=== PATIENT | male | born 2000 | race Caucasian/White ===

== ENCOUNTER 2020-02-02 16:46 | Emergency (ER) | payer SELFPAY ==
[2020-02-02] MEDS ORDERED: valACYclovir 1,000 MG Tab PO ONE (17:09)
--- NOTE | 2020-02-02 17:11 | EDM.PDOC ---
ED HPI GENERAL MEDICAL PROBLEM - General Chief Complaint: General Stated Complaint: STI TESTING Time Seen by Provider: 02/02/20 16:58 Source of Information: Reports: Patient History Limitations: Reports: No Limitations - History of Present Illness INITIAL COMMENTS - FREE TEXT/NARRATIVE: The patient presents for STD testing. He was called by a girlfriend that she has herpes and he should get tested. He has some lesions on the shaft of his penis that showed up last week. They are crusted over now. He has no penile discharge. Onset: Gradual Duration: Week(s): (1) Location: Reports: Other (Penis) Quality: Reports: Burning Severity: Mild Improves with: Reports: None Worsens with: Reports: None Associated Symptoms: Reports: No Other Symptoms - Related Data Allergies Allergy/AdvReac Type Severity Reaction Status Date / Time No Known Allergies Allergy Verified 02/02/20 16:56 Home Meds: Home Meds valACYclovir [Valtrex] 1,000 mg PO BID #14 tab 02/02/20 [Rx] Past Medical History - Past Surgical History HEENT Surgical History: Reports: Tonsillectomy Social & Family History - Tobacco Use Tobacco Use Status *Q: Current Every Day Tobacco User Years of Tobacco use: 3 Packs/Tins Daily: 1 - Caffeine Use Caffeine Use: Reports: Coffee, Energy Drinks, Soda - Recreational Drug Use Recreational Drug Use: No ED ROS GENERAL - Review of Systems Review Of Systems: See Below Constitutional: Reports: No Symptoms HEENT: Reports: No Symptoms Respiratory: Reports: No Symptoms Cardiovascular: Reports: No Symptoms Endocrine: Reports: No Symptoms GI/Abdominal: Reports: No Symptoms : Reports: Other (Penile lesions) ED EXAM, GENERAL - Physical Exam Exam: See Below Exam Limited By: No Limitations General Appearance: Alert, No Apparent Distress Ears: Normal External Exam Nose: Normal Inspection Head: Atraumatic, Normocephalic Neck: Normal Inspection Respiratory/Chest: No Respiratory Distress (Male) Exam: Other (about 5 lesions on his penis that are scabbed over. No penile discharge.) Course - Vital Signs Last Recorded V/S: Last Vital Signs Temp 96.8 F L 02/02/20 16:55 Pulse 83 02/02/20 16:55 Resp 20 02/02/20 16:55 BP 153/93 H 02/02/20 16:55 Pulse Ox 100 02/02/20 16:55 - Re-Assessments/Exams Free Text/Narrative Re-Assessment/Exam: 02/02/20 17:10 He has herpes. I will get him a dose of valacyclivor and check him for chlamydia and gonorrhea. I will call him with those results. Departure - Departure Time of Disposition: 17:15 Disposition: Home, Self-Care 01 Condition: Good Clinical Impression: Herpes genitalis in men - Discharge Information *PRESCRIPTION DRUG MONITORING PROGRAM REVIEWED*: Not Applicable *COPY OF PRESCRIPTION DRUG MONITORING REPORT IN PATIENT KASSANDRA: Not Applicable Prescriptions: valACYclovir [Valtrex] 1,000 mg PO BID #14 tab Referrals: PCP,None [Primary Care Provider] - Chelsea Stokes, TERESSA [Nurse Practitioner] - 1 Week Additional Instructions: Take the valacyclivor 2 times per day for a week. Do not have intercourse until the lesions are gone. I will call you with the gonorrhea and chlamydia results. Follow up with Chelsea Stokes in your clinic within a week. Please return if you are worse. Contact partners and have them get tested. Sepsis Event Note (ED) - Evaluation Sepsis Screening Result: No Definite Risk - Focused Exam Vital Signs: Vital Signs Temp Pulse Resp BP Pulse Ox 02/02/20 16:55 96.8 F L 83 20 153/93 H 100
[2020-02-02 19:01] LABS: C. TRACHOMATIS BY PCR DETECTED; N. GONORRHOEAE BY PCR NOT DETECTED
[2020-02-02] MEDS ORDERED: cefTRIAXone 250 MG, Lidocaine 1% 0.9 ML IM ONE ×2 (19:10)
[2020-02-02] MEDS ORDERED: Azithromycin 250 MG Tab PO ONE (19:11)
== END 2020-02-02 17:00 | disposition home or self-care (01) ==
LOC: JD.ED 16:46
DX: A60.00 Herpesviral infection of urogenital system, unspecified (principal); F17.210 Nicotine dependence, cigarettes, uncomplicated
CPT/HCPCS: 87491; 87591; 99283; A9270

== ENCOUNTER 2024-03-03 20:53 | Emergency (ER) | payer SELFPAY ==
[2024-03-03] MEDS ORDERED: Ketorolac 30 MG/ML SDV IVPUSH ONE (21:36)
[2024-03-03] MEDS ORDERED: cefTRIAXone 2 GM in Sodium Chloride 0.9% 100 ML IV ONE (21:36)
[2024-03-03] MEDS: Sulfamethoxazole/Trimethoprim 800-160 MG Tab PO ONE (21:53)
[2024-03-03] MEDS: cefTRIAXone 2 GM Vial IV ONE (21:53)
[2024-03-03] MEDS: Lidocaine 1% 10 ML MDV INJECT ONE (21:55)
[2024-03-03] MEDS: Diphtheria,Pertussis(Acell),Tetanus Vaccine 0.5 ML Syringe IM ONE (21:55)
[2024-03-03] MEDS: Bacitracin Oint 15 GM Tube TOP ONE (22:33)
== END 2024-03-03 22:42 | disposition home or self-care (01) ==
LOC: JD.ED 20:53
DX: L02.512 Cutaneous abscess of left hand (principal); F17.210 Nicotine dependence, cigarettes, uncomplicated; Z23 Encounter for immunization
CPT/HCPCS: 10060; 73120; 90471; 90715; 96374; 99283; A9270; J0696; J3490

== ENCOUNTER 2024-03-04 18:48 | Emergency (ER) | payer SELFPAY ==
[2024-03-04] MEDS: Bacitracin Oint 15 GM Tube TOP SCH (19:45)
[2024-03-04] MEDS: cefTRIAXone 2 GM, Lidocaine 1% 4.2 ML IM ONE (19:46)
== END 2024-03-04 20:15 | disposition home or self-care (01) ==
LOC: JD.ED 18:48
DX: L02.512 Cutaneous abscess of left hand (principal)
CPT/HCPCS: 96372; 99283; A9270; J0696; J3490